=== PATIENT | male | born 1980 | race Two or more races ===

== ENCOUNTER 2023-11-29 16:52 | Emergency (ER) | payer SELFPAY ==
[2023-11-29 17:11] VITALS: BP 102/65; PULSE 100; RESP 18; TEMP 98.2; BMI 26.2
[2023-11-29] MEDS ORDERED: morphine CARPU-JECT 4 MG/1 ML DISP.SYRIN IVPUSH ONE (17:32)
[2023-11-29] MEDS ORDERED: KETOROLAC TROMETHAMINE 30 MG/1 ML VIAL IVPUSH ONE (17:32)
[2023-11-29] MEDS ORDERED: LIDOCAINE 5% TOPICAL PATCH TP ONE (17:32)
[2023-11-29] MEDS ORDERED: DEXAMETHASONE SOD PHOSPHATE 20 MG/5 ML VIAL IVPB ONE (17:33)
[2023-11-29] MEDS ORDERED: LIDOCAINE 4% PATCH TP ONE (19:03)
[2023-11-29] MEDS ORDERED: DEXAMETHASONE SOD PHOSPHATE 10 MG/1 ML VIAL ONE (19:03)
[2023-11-29] MEDS ORDERED: KETOROLAC TROMETHAMINE 30 MG/1 ML VIAL ONE (19:03)
[2023-11-29] MEDS ORDERED: LIDOCAINE PATCH REMOVAL MC SCH (22:00)
== END 2023-11-29 20:50 | disposition home or self-care (01) ==
LOC: JER 16:52
PROC: 3E033GC Introduction of Other Therapeutic Substance into Peripheral Vein, Percutaneous Approach (ICD-10-PCS; principal; 2023-11-29)
PROC: 3E0333Z Introduction of Anti-inflammatory into Peripheral Vein, Percutaneous Approach (ICD-10-PCS; 2023-11-29)
DX: M54.16 Radiculopathy, lumbar region (principal); M54.50 Low back pain, unspecified
CPT/HCPCS: 72131-TC; 99284-25